=== PATIENT | female | born 1930 | race Caucasian/White ===

== ENCOUNTER 2017-07-15 05:46 | Inpatient (IN) | payer OTHER, MEDICAID ==
[~2017-07-15] VITALS: Ht 154.9 cm; Wt 84.8 kg
[2017-07-15] VITALS (11 sets, daily range): BP systolic 61–143
[~2017-07-15 05:46] MED LIST: ACET325S7 RC; ASCO500T20 PO; BISA-79 PO; CARB-61 PO; CAT.1 PO; DIVA500T7 PO; DOCU250C PO; ESTR0.623 PO; HYDR-1189 PO; LEVO100T PO; MAGN400O4 PO; MONT10TA22 PO; MULT-1184 PO; NA P118E RC; OXYB5TAB11 PO; PRO40 PO; PROP20TA7 PO; REM15 PO; RISP1TAB27 PO; SENN-153 PO; TEMA15CA51 PO; TRAM50TA92 PO; TRAZ50TA54 PO; ZIPR80CA26 PO
[2017-07-15] MEDS ORDERED: NACL 0.9% 1,000 ML IV ONE ×3 (06:41→09:45)
[2017-07-15 07:35] LABS: WHITE BLOOD COUNT (AUTO) 37.9 K/uL (4.8-10.8)
[2017-07-15 07:36] LABS: HEMATOCRIT 41.6 % (36-48); HEMOGLOBIN 13.8 g/dL (12.0-16.0); MEAN CORPUSCULAR HEMOGLOBIN 29 pg (27-31); MEAN CORPUSCULAR HGB CONC 33 % (32-36); MEAN CORPUSCULAR VOLUME 87 fL (79.0-98.0); PLATELET COUNT (AUTO) 473 K/uL (130-430); RED BLOOD CELL COUNT(AUTO) 4.77 MIL/uL (4.2-6.2); RED CELL DISTRIBUTION WIDTH 14.7 % (9.0-15.0)
[2017-07-15 07:38] LABS: ANION GAP 12 (5-15); CALCIUM 11.3 mg/dL (8.4-11.0); CHLORIDE 96 mmol/L (98-107); CREATININE 1.58 mg/dL (0.55-1.30); GLUCOSE 218 mg/dL (70-99); POTASSIUM 5.3 mmol/L (3.5-5.1); SODIUM SERUM 130 mmol/L (136-145); UREA NITROGEN, BLOOD 43 mg/dL (8-21)
[2017-07-15 07:43] LABS: ALANINE AMINOTRANSFERASE 23 U/L (12-78); ALBUMIN 1.9 g/dL (3.4-4.8); ASPARTATE AMINOTRANSFERASE 35 U/L (10-37); TOTAL BILIRUBIN 0.7 mg/dL (0.0-1.0)
[2017-07-15 07:45] LABS: INR 1.4 (0.8-1.2); PROTHROMBIN TIME 15.8 SECS (9.5-12.5)
[2017-07-15] MEDS ORDERED: PIPERACILLIN/TAZO 3.375 GM in NS 50 ML IV ONE (07:45)
[2017-07-15] MEDS ORDERED: PIPERACILLIN/TAZOBACTAM 3.375 GM/VIAL (ZOSYN) IV ONE (07:54)
[2017-07-15] MEDS ORDERED: ZOLP5TAB2 PO (07:59)
[2017-07-15] MEDS ORDERED: ACET325T53 PO (07:59)
[2017-07-15] MEDS ORDERED: HAL2 IM (07:59)
[2017-07-15] MEDS ORDERED: COG1 PO (07:59)
[2017-07-15] MEDS ORDERED: LORA-258 PO (07:59)
[2017-07-15] MEDS ORDERED: ZIN220 PO (07:59)
[2017-07-15] MEDS ORDERED: ASCO500T20 PO (07:59)
[2017-07-15] MEDS ORDERED: CLON0.5T4 PO (07:59)
[2017-07-15] MEDS ORDERED: NOR10 PO (07:59)
[2017-07-15 08:00] LABS: BAND % (MANUAL) 3 % (0-6); LYMPHOCYTES % (MANUAL) 2 % (20-46)
[2017-07-15 08:01] LABS: ATYPICAL LYMPHOCYTES % 0 % (0-0); BASOPHILS % (MANUAL) 0 % (0-2); EOSINOPHILS % (MANUAL) 0 % (0-7); METAMYELOCYTES % 1 % (0-0); MONOCYTES % (MANUAL) 6 % (0-11); MYELOCYTES % 1 % (0-0)
[2017-07-15] MEDS ORDERED: VANCOMYCIN HCL 1000 MG/VIAL IV ONE (09:41)
[2017-07-15] MEDS ORDERED: VANCOMYCIN HCL 1,000 MG in NS 250 ML IV ONE (09:45)
[2017-07-15 10:24] LABS: ANION GAP 8 (5-15); CALCIUM 9.2 mg/dL (8.4-11.0); CHLORIDE 102 mmol/L (98-107); CREATININE 1.55 mg/dL (0.55-1.30); GLUCOSE 222 mg/dL (70-99); SODIUM SERUM 135 mmol/L (136-145); UREA NITROGEN, BLOOD 42 mg/dL (8-21)
[2017-07-15] MEDS ORDERED: NACL 0.9% 1,000 ML IV SCH (10:30)
[2017-07-15] MEDS ORDERED: LORazepam 1 MG TABLET PO PRN (11:15)
[2017-07-15] MEDS ORDERED: HALOPERIDOL 1 MG TABLET (HALDOL) PO PRN (11:15)
[2017-07-15] MEDS ORDERED: ZOLPIDEM TARTRATE 5 MG TABLET PO SCH (11:15)
[2017-07-15] MEDS ORDERED: ACETAMINOPHEN 325 MG TABLET PO PRN (11:15)
[2017-07-15] MEDS ORDERED: MILK OF MAGNESIA 30 ML UDC PO PRN (11:15)
[2017-07-15] MEDS ORDERED: D5/0.45 NS 1,000 ML IV SCH (11:30)
[2017-07-15] MEDS ORDERED: LevALBUTEROL HCL 1.25 MG/0.5 ML *CONC.* VIAL.NEB (XOPENEX CONC.) INH PRN (11:45)
[2017-07-15] MEDS ORDERED: SODIUM BICARBONATE 8.4% VIAL 50 MEQ/50 ML VIAL INJ ONE (12:15)
[2017-07-15] MEDS ORDERED: LevALBUTEROL HCL 1.25 MG/0.5 ML *CONC.* VIAL.NEB (XOPENEX CONC.) INH SCH (13:00)
[2017-07-15] MEDS: cloNIDine HCL 0.1 MG TABLET PO SCH ×2 (13:30→17:19)
[2017-07-15] MEDS: PIPERACILLIN/TAZO 3.375/DEX-IS 50 ML IV SCH ×2 (13:31→17:18)
[2017-07-15] MEDS ORDERED: NOREPINEPHRINE BITARTRATE 8 MG in D5W 242 ML IV PRN (15:45)
[2017-07-15] MEDS ORDERED: SODIUM BICARBONATE 8.4% JECT 50 MEQ/50 ML SYRINGE IVP ONE (15:45)
[2017-07-15] MEDS ORDERED: NS 500 ML IV ONE (15:45)
[2017-07-15] MEDS ORDERED: SODIUM BICARBONATE 8.4% JECT 50 MEQ/50 ML SYRINGE ONE (15:51)
[2017-07-15] MEDS ORDERED: HYDROCORTISONE SOD SUCC 100 MG/2 ML VIAL IVP SCH (16:00)
[2017-07-15] MEDS ORDERED: HEPARIN SODIUM,PORCINE 5000 UNITS/ML VIAL IV ONE (17:45)
[2017-07-15] MEDS ORDERED: HEPARIN 25,000 UNITS/D5W 250ML 250 ML IV PRN (17:45)
[2017-07-15] MEDS ORDERED: ENOXAPARIN SODIUM 40 MG/0.4 ML SYRINGE SUBCUT SCH (21:00)
[2017-07-15] MEDS ORDERED: clonazePAM 0.5 MG TABLET PO SCH (21:00)
[2017-07-15] MEDS ORDERED: BENZTROPINE MESYLATE 1 MG TABLET PO SCH (21:00)
[2017-07-15] MEDS ORDERED: MONTELUKAST 10 MG TABLET PO SCH (21:00)
[2017-07-15] MEDS ORDERED: OXYBUTYNIN CHLORIDE 5 MG TABLET PO SCH (21:00)
[2017-07-15] MEDS ORDERED: DOCUSATE SODIUM 250 MG CAPSULE PO SCH (21:00)
[2017-07-15 21:06] LABS: BF APPEARANCE UNSPUN BLOODY (CLEAR); BODY FLUID COLOR RED (LT YELLOW); BODY FLUID SOURCE/ TYPE PLEURAL; BODY FLUID TOTAL VOLUME 250 mL; SOURCE/TYPE ,BODY FLUID THORACENTESIS; WBC, BODY FLUID 1494 /uL
[2017-07-15 21:07] LABS: EOSINOPHIL, BODY FLUID 0 %; LYMPHOCYTES, BODY FLUID 2 %; MONOCYTES,BODY FLUID 10 %; NEUTROPHIL, BODY FLUID 88 %; RBC, BODY FLUID 113950 /uL
[2017-07-15 21:14] LABS: APPEARANCE,SPUN,BODY FLUID CLEAR (CLEAR)
[2017-07-15] MEDS ORDERED: EPINEPHrine JECT 1 MG/10 ML SYR IVP ONE (21:26)
[2017-07-15] MEDS ORDERED: ATROPINE SULFATE 1 MG/10 ML SYRINGE IVP ONE (21:26)
[2017-07-15] MEDS ORDERED: SODIUM BICARB IV ONE (21:26)
[2017-07-16] MEDS ORDERED: LEVOTHYROXINE SODIUM 0.1 MG TABLET PO SCH (07:00)
[2017-07-16] MEDS ORDERED: amLODIPine BESYLATE 10 MG TABLET PO SCH (09:00)
[2017-07-16] MEDS ORDERED: ASCORBIC ACID 500 MG TABLET PO SCH (09:00)
[2017-07-16] MEDS ORDERED: PANTOPRAZOLE SODIUM 40 MG TAB PO SCH (09:00)
[2017-07-16] MEDS ORDERED: MILK OF MAGNESIA 30 ML UDC PO SCH (09:00)
[2017-07-16 10:10] LABS: BODY FLUID GLUCOSE 167 mg/dL
[2017-07-17] MEDS ORDERED: VANCOMYCIN HCL 1,000 MG in NS 250 ML IV SCH (09:00)
== END 2017-07-15 21:27 | disposition expired | DRG 871 ==
LOC: SED 05:46 → SIC 10:22
PROVIDERS: ADMIT Internal Medicine; ATTEND Internal Medicine
PROC: 0W9B3ZZ Drainage of Left Pleural Cavity, Percutaneous Approach (ICD-10-PCS; principal; 2017-07-15)
PROC: 5A09357 Assistance with Respiratory Ventilation, Less than 24 Consecutive Hours, Continuous Positive Airway Pressure (ICD-10-PCS; 2017-07-15)
DX: A41.9 Sepsis, unspecified organism (principal); J18.9 Pneumonia, unspecified organism; J96.01 Acute respiratory failure with hypoxia; N17.9 Acute kidney failure, unspecified; J90 Pleural effusion, not elsewhere classified; G20 Parkinson's disease; G30.9 Alzheimer's disease, unspecified; I45.2 Bifascicular block; F02.80 Dementia in other diseases classified elsewhere, unspecified severity, without behavioral disturbance, psychotic disturbance, mood disturbance, and anxiety; Z66 Do not resuscitate; I46.9 Cardiac arrest, cause unspecified; E86.0 Dehydration; M19.90 Unspecified osteoarthritis, unspecified site; E03.9 Hypothyroidism, unspecified; F31.9 Bipolar disorder, unspecified; I10 Essential (primary) hypertension; J45.909 Unspecified asthma, uncomplicated; F29 Unspecified psychosis not due to a substance or known physiological condition; Z90.49 Acquired absence of other specified parts of digestive tract; Z90.710 Acquired absence of both cervix and uterus; Z88.2 Allergy status to sulfonamides; Z91.018 Allergy to other foods; Z79.899 Other long term (current) drug therapy
CPT/HCPCS: 32555; 36415; 36600; 71010; 80048; 80053; 82803-TC; 82947-TC; 82962; 83605; 83880; 84157-TC; 84484; 85007; 85027; 85610-TC; 87040-TC; 87070-TC; 87081; 87086; 87101; 87116; 88108; 88305; 89051-TC; 89060-TC; 93005; 93306; 93923; 93970; 94640; 94660; 96361; 96365; 96366; 96367; 99291; C1729; J0171; J0461; J1720; J2543; J3370; J7030; J7040; J7050; J7060